=== PATIENT | female | born 1980 | race Hispanic/Latino ===

== ENCOUNTER → 2019-04-24 | Outpatient (CLI) | payer OTHER ==
--- NOTE | 2019-04-24 12:59 | Diagnostic Imaging Report ---
Thyroid ultrasound History: Enlarged thyroid Comparison: None Findings: The thyroid echotexture is heterogeneous. Vascularity is normal. The right lobe measures 5.1 x 2.1 x 1.7 cm. The left lobe measures 4.0 x 1.3 x 1.5 cm. The isthmus measures 0.4 cm. Heterogeneous thyroid tissue with no discrete nodule. Lymph Nodes: No cervical lymph nodes are identified. Parathyroids: Not visualized. IMPRESSION: Heterogeneous thyroid tissue with no discrete thyroid nodules. ACR glossary of thyroid rads TI-RADS 1: No focal lesion. TI-RADS 2: Not suspicious. TI-RADS 3: Mildly suspicious (recommend FNA is greater than or equal to 2.5 cm; follow-up at 1, 3, and 5 years if greater than or equal to 1.5 cm) TI-RADS 4: Moderately Suspicious (recommend FNA is greater than or equal to 1.5 cm; follow-up at 1, 2, 3, and 5 years) TI-RADS 5: Highly suspicious (recommend FNA is greater than or equal to 10 mm) TI-RADS 6: Biopsy-proven malignancy Signed by: Nelson Vallejo MD on 04/24/2019 12:55 PM
== END ==
LOC: US 11:30
PROVIDERS: ATTEND Family Medicine
DX: E04.9 Nontoxic goiter, unspecified (principal)
CPT/HCPCS: 76536